=== PATIENT | male | born 1990 ===

== ENCOUNTER 2016-11-01 02:52 | Emergency (ER) | payer MEDICAID ==
[2016-11-01 02:58] VITALS: BP 149/79; PULSE 71; RESP 17; TEMP 98.2; O2SAT 99
--- NOTE | 2016-11-01 03:45 | ED PDOC ---
HPI: General Adult Time Seen by Provider: 11/01/16 02:56 Chief Complaint (Nursing): Medical Clearance Chief Complaint (Provider): Denies complaint Additional Complaint(s): PT states he was walking and police asked him what he was doing. He was told to go home. Pt lives with sister and she kicked him out of the house. Pt states he attempted to go to a prison but he was to late. Pt states he was told by police to come to the ER and get a bed for the night. Past Medical History Reviewed: Historical Data, Nursing Documentation, Vital Signs Vital Signs: Last Vital Signs Temp 98.2 F 11/01/16 02:55 Pulse 71 11/01/16 02:55 Resp 17 11/01/16 02:55 BP 149/79 11/01/16 02:55 Pulse Ox 99 11/01/16 02:55 - Medical History PMH: Bipolar Disorder Denies: Diabetes, Hepatitis, HIV, HTN, Chronic Kidney Disease, Seizures, Sexually Transmitted Disease - Surgical History Surgical History: No Surg Hx - Family History Family History: States: Unknown Family Hx - Home Medications Home Medications: Ambulatory Orders Medication Instructions Recorded carBAMazepine [TEGretol] 200 mg PO BID 09/12/14 Paliperidone [Invega] 11/22/14 - Allergies Allergies/Adverse Reactions: Allergies Allergy/AdvReac Type Severity Reaction Status Date / Time No Known Allergies Allergy Verified 11/22/14 17:06 Review of Systems ROS Statement: Except As Marked, All Systems Reviewed And Found Negative Physical Exam - Reviewed Nursing Documentation Reviewed: Yes Vital Signs Reviewed: Yes - Physical Exam Appears: Positive for: Well, Non-toxic, No Acute Distress Head Exam: Positive for: ATRAUMATIC, NORMAL INSPECTION, NORMOCEPHALIC Skin: Positive for: Normal Color, Warm, DRY Eye Exam: Positive for: Normal appearance ENT: Positive for: Normal ENT Inspection Neck: Positive for: Normal, Painless ROM Cardiovascular/Chest: Positive for: Regular Rate, Rhythm Respiratory: Positive for: CNT, Normal Breath Sounds Gastrointestinal/Abdominal: Positive for: Normal Exam, Bowel Sounds, Soft Back: Positive for: Normal Inspection Extremity: Positive for: Normal ROM Neurologic/Psych: Positive for: Alert, Oriented - ECG O2 Sat by Pulse Oximetry: 99 Disposition - Clinical Impression Clinical Impression: Normal exam - Patient ED Disposition Is Patient to be Admitted: No - Disposition Disposition: Routine/Home Disposition Time: 03:45 Condition: GOOD Instructions: Normal Exam (ED)
== END 2016-11-01 04:15 | disposition home or self-care (01) ==
LOC: H.ER 02:52
DX: Z00.00 Encounter for general adult medical examination without abnormal findings (principal)

== ENCOUNTER 2017-01-26 11:20 | Emergency (ER) | payer MEDICAID ==
[2017-01-26 11:20] VITALS: BMI 32.1
[2017-01-26 11:25] VITALS: BP 136/80; PULSE 85; RESP 16; TEMP 98.1; O2SAT 98
--- NOTE | 2017-01-26 11:29 | ED PDOC ---
HPI: General Adult Time Seen by Provider: 01/26/17 11:27 Chief Complaint (Nursing): Medical Clearance Chief Complaint (Provider): Medical clearance for incarceration History Per: Patient Additional Complaint(s): 26 yo male, denies nay PMH, presents to ED in order to undergo medical and psychiatric clearance for incarceration. Pt denies any medical complaints at this time, denies nay SI or HI. Past Medical History Reviewed: Nursing Documentation, Vital Signs Vital Signs: Last Vital Signs Temp 98.1 F 01/26/17 11:22 Pulse 85 01/26/17 11:22 Resp 16 01/26/17 11:22 BP 136/80 01/26/17 11:22 Pulse Ox 98 01/26/17 11:28 - Medical History PMH: Bipolar Disorder, Depression, Schizophrenia Denies: Anxiety, Diabetes, Hepatitis, HIV, HTN, Chronic Kidney Disease, Seizures, Sexually Transmitted Disease - Surgical History Surgical History: No Surg Hx - Family History Family History: States: Unknown Family Hx - Living Arrangements Living Arrangements: With Family - Social History Current smoker - smoking cessation education provided: No Alcohol: None Drugs: Denies - Allergies Allergies/Adverse Reactions: Allergies Allergy/AdvReac Type Severity Reaction Status Date / Time No Known Allergies Allergy Verified 01/26/17 11:27 Review of Systems ROS Statement: Except As Marked, All Systems Reviewed And Found Negative Physical Exam - Reviewed Nursing Documentation Reviewed: Yes Vital Signs Reviewed: Yes - Physical Exam Appears: Positive for: Well, Non-toxic, No Acute Distress Head Exam: Positive for: ATRAUMATIC, NORMAL INSPECTION, NORMOCEPHALIC Skin: Positive for: Normal Color, Warm, DRY Eye Exam: Positive for: EOMI, Normal appearance, PERRL ENT: Positive for: Normal ENT Inspection Neck: Positive for: Normal, Painless ROM Cardiovascular/Chest: Positive for: Regular Rate, Rhythm Respiratory: Positive for: CNT, Normal Breath Sounds Gastrointestinal/Abdominal: Positive for: Normal Exam, Bowel Sounds, Soft Back: Positive for: Normal Inspection Extremity: Positive for: Normal ROM Neurologic/Psych: Positive for: Alert, Oriented - ECG O2 Sat by Pulse Oximetry: 98 Medical Decision Making Medical Decision Making: Physical exam findings benign Pt offers no physical complaints Pt underwent psych eval, medically and psychiatrically cleared for incarceration at this time Disposition - Clinical Impression Clinical Impression: Bipolar disorder - Patient ED Disposition Is Patient to be Admitted: No - Disposition Disposition: Routine/Home Disposition Time: 12:01 Condition: STABLE Additional Instructions: Patient is medically and psychiatrically cleared for incarceration Instructions: Bipolar Disorder (ED) Forms: [employer] ([place]ian)
== END 2017-01-26 12:11 | disposition home or self-care (01) ==
LOC: H.ER 11:20
DX: F20.9 Schizophrenia, unspecified (principal); F31.9 Bipolar disorder, unspecified

== ENCOUNTER 2017-04-21 03:32 | Emergency (ER) | payer MEDICAID ==
[2017-04-21 03:33] VITALS: BMI 32.1
[2017-04-21 03:48] VITALS: BP 139/78; PULSE 84; RESP 16; TEMP 98.4; O2SAT 98
--- NOTE | 2017-04-21 04:20 | ED PDOC ---
HPI: General Adult Time Seen by Provider: 04/21/17 03:38 Chief Complaint (Nursing): Medical Clearance Chief Complaint (Provider): Medical Clearance History Per: Patient History/Exam Limitations: no limitations Additional Complaint(s): 27 y/o male with past medical history of depression and schizophrenia is brought to the ED by [facility] for evaluation of medical/psychiatric clearance. According to [place] police, patient may have swallowed a bag of controlled substance, possibly crack cocaine at about 1am. Denies using drugs or alcohol. Denies homicidal or suicidal ideation, chest pain or any further medical complaints. Past Medical History Reviewed: Historical Data, Nursing Documentation, Vital Signs Vital Signs: Last Vital Signs Temp 98.4 F 04/21/17 03:46 Pulse 84 04/21/17 03:46 Resp 16 04/21/17 03:46 BP 139/78 04/21/17 03:46 Pulse Ox 98 04/21/17 04:24 - Medical History PMH: Bipolar Disorder, Depression, Schizophrenia Denies: Anxiety, Diabetes, Hepatitis, HIV, HTN, Chronic Kidney Disease, Seizures, Sexually Transmitted Disease - Surgical History Surgical History: No Surg Hx - Family History Family History: States: Unknown Family Hx - Social History Current smoker - smoking cessation education provided: Yes Alcohol: None Drugs: Denies - Allergies Allergies/Adverse Reactions: Allergies Allergy/AdvReac Type Severity Reaction Status Date / Time No Known Allergies Allergy Verified 01/26/17 11:27 Review of Systems ROS Statement: Except As Marked, All Systems Reviewed And Found Negative (As per HPI, otherwise negative) Cardiovascular: Negative for: Chest Pain Neurological: Positive for: Other (Patient is here for medical/psychiatric clearance) Psych: Negative for: Suicidal ideation (homicidal ideation) Physical Exam - Reviewed Nursing Documentation Reviewed: Yes Vital Signs Reviewed: Yes - Physical Exam Appears: Positive for: Well, No Acute Distress Head Exam: Positive for: ATRAUMATIC, NORMOCEPHALIC Skin: Positive for: Warm, Dry Eye Exam: Positive for: EOMI, PERRL ENT: Positive for: Normal ENT Inspection Neck: Positive for: Painless ROM, Supple Cardiovascular/Chest: Positive for: Regular Rate, Rhythm. Negative for: Murmur Respiratory: Positive for: Normal Breath Sounds. Negative for: Respiratory Distress Gastrointestinal/Abdominal: Positive for: Soft. Negative for: Tenderness Back: Positive for: Normal Inspection. Negative for: Decreased ROM Extremity: Positive for: Normal ROM. Negative for: Deformity Lymphatic: Negative for: Adenopathy Neurologic/Psych: Positive for: Alert. Negative for: Motor/Sensory Deficits - ECG O2 Sat by Pulse Oximetry: 98 (RA) Pulse Ox Interpretation: Normal Medical Decision Making Medical Decision Making: Time: 03:51 Initial Impression: Medical and psychiatric evaluation Plan: Crisis evaluation --Patient does not demonstrate any signs or symptoms of intoxication or elicit substance. -- Patient is evaluated by crisis and is stable for discharge. Scribe Attestation: Documented by Barb Breen acting as a scribe for Lia Chen MD. Scribe Attestation: All medical record entries made by the Scribe were at my direction and personally dictated by me. I have reviewed the chart and agree that the record accurately reflects my personal performance of the history, physical exam, medical decision making, and the department course for this patient. I have also personally directed, reviewed, and agree with the discharge instructions and disposition. Disposition - Clinical Impression Clinical Impression: Schizophrenia - Disposition Disposition: Discharged/Transfer to Law Enforcement Disposition Time: 04:00 Condition: STABLE Additional Instructions: MEDICALLY AND PSYCHIATRICALLY STABLE FOR INCARCERATION Instructions: Schizophrenia (ED), Polysubstance Abuse (ED) Forms: [employer] ([place]yp[place])
== END 2017-04-21 04:46 ==
LOC: H.ER 03:32
DX: F20.9 Schizophrenia, unspecified; F31.9 Bipolar disorder, unspecified; F17.200 Nicotine dependence, unspecified, uncomplicated